=== PATIENT | male | born 1990 | race Caucasian/White ===

== ENCOUNTER 2019-05-23 07:27 | Day surgery (SDC) | payer OTHER, BC ==
[2019-05-23] MEDS ORDERED: Midazolam 1 MG/ML 2 ML SDV IV ONE (07:28)
[2019-05-23] MEDS ORDERED: fentaNYL 100 MCG/2 ML SDV IV ONE (07:28)
[2019-05-23] MEDS ORDERED: Ketorolac 30 MG/ML SDV IVPUSH ONE ×2 (07:28→12:29)
[2019-05-23] MEDS ORDERED: Propofol 200 MG/20 ML SDV IV ONE ×2 (07:28)
[2019-05-23] MEDS ORDERED: Lactated Ringers 1,000 ML IV ONE (07:28)
[2019-05-23] MEDS ORDERED: Ondansetron 4 MG/2 ML SDV IVPUSH ONE (07:28)
[2019-05-23] MEDS ORDERED: HYDROmorphone 2 MG/ML SDV IV ONE (07:28)
[2019-05-23] MEDS ORDERED: Lactated Ringers 1,000 ML IV SCH (07:30)
[2019-05-23] MEDS ORDERED: Sodium Chloride 0.9% 10 ML Syringe FLUSH PRN (07:30)
[2019-05-23] MEDS ORDERED: ceFAZolin 2 GM in Premix Bag 1 BAG IV ONE (08:30)
[2019-05-23] MEDS ORDERED: EPINEPHrine 1 MG/ML SDV ONE (09:30)
[2019-05-23] MEDS ORDERED: Gentamicin 40 MG/ML 2 ML Vial ONE (09:30)
--- NOTE | 2019-05-23 10:59 | PCM.OPNOTE ---
- General Post-Op/Procedure Note Date of Surgery/Procedure: 05/23/19 Operative Procedure(s): Left knee arthroscopy. partial medial and lateral menisectomy. partial synovectomy Pre Op Diagnosis: medial and lateral meniscus tears, left knee Post-Op Diagnosis: Same Anesthesia Technique: General ET Tube Primary Surgeon: Martell Siddiqi Anesthesia Provider: Dedra Reno EBL in mLs: 5 Condition: Good
[2019-05-23] MEDS ORDERED: Acetaminophen/HYDROcodone 325-5 MG Tab PO ONE (12:36)
--- NOTE | 2019-05-23 18:01 | OR ---
DATE OF OPERATION: 05/23/2019 SURGEON: Martell Siddiqi DO PREOPERATIVE DIAGNOSIS: Left knee medial meniscus tear and lateral meniscus tear. POSTOPERATIVE DIAGNOSIS: Left knee medial meniscus tear and lateral meniscus tear. PROCEDURES: 1. Left knee partial medial and lateral meniscectomy. 2. Knee arthroscopy with partial synovectomy. ANESTHESIA: Dedra Reno CRNA. General endotracheal intubation. FLUID: Lactated Ringer solution. ESTIMATED BLOOD LOSS: Less than 5 mL. COMPLICATIONS: None. SPECIMEN: None. DISCHARGE DISPOSITION: Stable to PACU. HISTORY AND INDICATION FOR THE PROCEDURE: The patient was seen preoperatively in the clinic. He had an injury at work several weeks ago. We did try to treat him nonoperatively. Preoperative imaging confirmed the above-mentioned diagnosis. Risks and benefits of the procedure explained to the patient. Informed consent was obtained. DETAILS OF PROCEDURE: The patient was seen preoperatively by myself and Anesthesia staff preoperative holding area with the operative site marked. He was brought to the operative suite by the Anesthesia staff where general anesthesia was administered. His right leg was placed into a stirrup. The left leg was placed into a thigh gil. All extremities were found to be well padded. A well-padded tourniquet was placed in the left thigh. The left lower extremity was then prepped and draped in a sterile manner. Time-out was called identifying the correct patient, correct procedure, and the correct site and the antibiotics had been within appropriate period of time. The left lower extremity was exsanguinated and tourniquet raised to 250 mmHg for 77 minutes. A lateral portal was first made. This showed no chondromalacia in the patellofemoral compartment. The medial compartment did show a tear of the medial meniscus in its midportion. I immediately used a shaver to shave that and then used the cautery unit to stabilize the edges. I then examined the ACL was in good repair and then medially noticed that the lateral meniscus had a portion of it that had flipped into the notch, and because of this, I was unable to see the remainder of the lateral meniscus. At that time, I used some arthroscopic scissors to cut the midportion and then shaved the posterior portion back to the root and then shaved the anterior portion back to its stable portion on the lateral meniscus. This did take quite a bit of time to shave out the entire portion of the torn meniscus. This was a longitudinal tear which did not enter the red zone that is why it was not repaired, especially given the patient's age. After this had been accomplished, I did use the cautery unit to stabilize some of the edges. I then took my instruments out of the knee and then got as much fluid as I could and then injected the bi-portals as well as inside the knee with bupivacaine with epinephrine and then closed with 3-0 nylon [id number] interrupted sutures. This was covered by Betadine soaked Adaptic sponges, Webril, and an Ayden wrap. Tourniquet was let down after the sutures were placed. The patient was allowed to awaken from general anesthesia and taken to the PACU in stable condition. /[id number] [facility]/SUMMER
== END 2019-05-23 13:12 | disposition home or self-care (01) ==
LOC: FB.SDS 07:27
PROVIDERS: ATTEND Orthopaedic Surgery
DX: S83.242A Other tear of medial meniscus, current injury, left knee, initial encounter (principal); S83.282A Other tear of lateral meniscus, current injury, left knee, initial encounter; Z87.891 Personal history of nicotine dependence
CPT/HCPCS: 29880; 94150; A9270; J0171; J0690; J1170; J1580; J1885; J2250; J2405; J2704; J3010; J7120